=== PATIENT | male | born 1995 ===

== ENCOUNTER 2021-02-09 08:17 | Emergency (ER) | payer OTHER ==
[~2021-02-09] VITALS: Ht 167.6 cm; Wt 77.1 kg
[2021-02-09] MEDS ORDERED: TRANXENE T-TAB7.5 MG (08:29)
[2021-02-09] MEDS ORDERED: OXTELLAR XR300 MG PO (08:29)
[2021-02-09] MEDS ORDERED: TRANXENE T-TAB7.5 MG PO (11:09)
[2021-02-09] MEDS ORDERED: OXCARBAZEPINE300 MG PO (11:09)
== END 2021-02-09 11:19 | disposition home or self-care (01) ==
LOC: ER 08:17
DX: G40.89 Other seizures (principal); Z11.52 Encounter for screening for COVID-19